=== PATIENT | female | born 1985 | race Caucasian/White ===

== ENCOUNTER 2023-01-28 14:45 | Outpatient (REF) | payer OTHER, SELFPAY ==
[2023-01-28 16:51] LABS: Basophils Absolute Auto 0.03 K/uL (0.00-0.30); Basophils Percent Auto 0.6 % (0.0-3.0); Eosinophils Absolute Auto 0.05 K/uL (0.00-0.50); Eosinophils Percent Auto 1.1 % (0.0-7.0); Hematocrit 42.1 % (33.0-51.0); Hemoglobin* 14.8 gm/dL (12.0-16.0); Immature Granulocytes Abs Auto 0.01 K/uL (0.00-0.30); Immature Granulocytes Pct Auto 0.2 %; Lymphocytes Percent Auto 44.1 % (20-44); Mean Corpuscular HGB Conc 35 gm/dL (32-36); Mean Corpuscular Hemoglobin 31 pg (26-34); Mean Corpuscular Volume 89 fL (80-100); Monocytes Percent Auto 6.8 % (0.0-11.0); Neutrophils Absolute Auto 2.24 K/uL (1.7-7.0); Neutrophils Percent Auto 47.2 % (42.0-72.0); Platelet Count* 197 K/uL (140-440); RDW Coefficient of Variation % 11.8 % (11.5-15.5); Red Blood Count 4.75 m/uL (4.00-5.20); White Blood Count* 4.74 K/uL (4.50-11.00)
[2023-01-28 17:01] LABS: Slide Review Reflex No
[2023-01-28 17:14] LABS: Albumin* 4.5 g/dL (3.3-5.0); Chloride* 100 mmol/L (96-114); Potassium* 3.9 mmol/L (3.6-5.1); Sodium* 137 mmol/L (135-149)
[2023-01-28 17:16] LABS: Bilirubin Total* 0.8 mg/dL (0.1-1.5); Carbon Dioxide* 30 mmol/L (20-32); Cholesterol* 117 mg/dL (90-199); Creatinine* 0.6 mg/dL (0.5-1.5); Estimated Glomerular Filt Rate 118 ml/min; Total Protein* 7.1 g/dL (6.0-8.3)
[2023-01-28 17:17] LABS: Alanine Aminotransferase* 19 U/L (4-35); Alkaline Phosphatase* 48 U/L (40-150); Aspartate Amino Transferase* 24 U/L (12-35); Blood Urea Nitrogen* 16 mg/dL (5-24); Calcium* 9.1 mg/dL (8.4-10.6); Glucose* 90 mg/dL (60-115); HDL Cholesterol* 54 mg/dL (>=50); LDL Cholesterol Calculated 47 mg/dL (<100); Triglycerides* 80 mg/dL (40-149)
[2023-01-28 17:18] LABS: Hemoglobin A1C* 4.46 % (0-5.6)
[2023-01-28 17:31] LABS: Free T4 Free Thyroxine* 1.07 ng/dL (0.70-1.85)
[2023-01-28 17:45] LABS: Thyroid Stimulating Hormone* 0.732 uIU/mL (0.270-4.20)
[2023-01-31 07:06] LABS: Estradiol Premenol Female 61 pg/mL
[2023-01-31 07:13] LABS: TPO Antibody 0.4 IU/mL (0.0-9.0); Thyroglobulin Antibody <0.9 IU/mL (0.0-4.0)
[2023-01-31 10:30] LABS: DHEAS 200 ug/dL (61-337)
[2023-01-31 10:55] LABS: Free T3 3.7 pg/mL (2.5-4.3)
[2023-02-03 12:42] LABS: 25-Hydroxyvitamin D2 <1.0 ng/mL; 25-Hydroxyvitamin D2,D3 Total 58.2 ng/mL (30.0-80.0); 25-Hydroxyvitamin D3 58.2 ng/mL
[2023-02-05 13:27] LABS: Progesterone, HPLC-MS/MS 1.38 ng/mL
[2023-02-07 17:10] LABS: Sex Hormone Binding Globulin 95 nmol/L (25-122); Testosterone, Free LC-MS/MS 10.8 pg/mL (1.3-9.2); Testosterone, LC-MS/MS 129 ng/dL (9-55)
== END 2023-01-28 14:46 | disposition home or self-care (01) ==
LOC: NPINS 14:45
DX: N95.1 Menopausal and female climacteric states (principal)
CPT/HCPCS: 80053; 80061; 82306; 82627; 82670; 83036; 84144; 84270; 84402; 84403; 84439; 84443; 84481; 85025; 86376; 86800